=== PATIENT | male | born 1940 | race Caucasian/White ===

== ENCOUNTER 2017-11-28 05:38 | Inpatient (IN) | payer MEDICARE, BC ==
[~2017-11-28] VITALS: Ht 182.9 cm; Wt 74.8 kg
[~2017-11-28 05:38] MED LIST: ASPI325EC; ASPI81CH; ATOR40TA PO; ATOR80; CLON.2TP TOP; CLOP75 PO; GLYBURIDE METF PO; HYDRA25 PO; Hydrochloroth12.5 MG PO; LEVEMIR FL100 UNIT/1 SC; LISI20 PO; LOTREL; Levitra20 MG; Lotrel 10-40 M1 EACH PO; METF500 PO; METO25ER; METO50ER PO; MIRT30ST MM; Novolog Fl100 UNIT/1 INJ; PANT40 PO; PIOG15 PO; TADA10TA; TAMS.4ER PO
[2017-11-28] MEDS ORDERED: ASPI81CH PO (05:51)
[2017-11-28] MEDS ORDERED: FINA5 PO (05:54)
[2017-11-28] MEDS ORDERED: METF500 PO (05:55)
[2017-11-28] MEDS ORDERED: LEVE500 PO (05:55)
[2017-11-28] MEDS ORDERED: GLYB2.5 PO (05:55)
[2017-11-28 07:00] LABS: BASOPHILS ABSOLUTE AUTO 0.03 K/mm3 (0.00-0.23); BASOPHILS PERCENT AUTO 0 % (0-2); EOSINOPHILS ABSOLUTE AUTO 0.16 K/mm3 (0.00-0.68); EOSINOPHILS PERCENT AUTO 2 % (0-6); Hematocrit 33.3 % (37.0-53.0); Hemoglobin 11.9 g/dL (13.5-17.5); IMMATURE GRAN ABSOLUTE AUTO 0.02 K/mm3 (0.00-0.10); IMMATURE GRAN PERCENT AUTO 0 % (0-1); LYMPHOCYTES ABSOLUTE AUTO 1.49 K/mm3 (0.84-5.20); LYMPHOCYTES PERCENT AUTO 21 % (21-46); MONOCYTES PERCENT AUTO 6 % (4-13); Mean Corpuscular HGB 32.1 pg (26.0-34.0); Mean Corpuscular HGB Conc 35.7 g/dL (31.5-36.5); Mean Corpuscular Volume 90 fL (80-100); Mean Platelet Volume 9.7 fL (9.1-12.4); NEUTROPHILS ABSOLUTE AUTO 5.12 K/mm3 (1.96-9.15); NEUTROPHILS PERCENT AUTO 71 % (41-73); Platelet Count 158 K/mm3 (150-400); RDW Coefficient Variation 12.9 % (11.7-14.2); RDW Standard Deviation 41.6 fL (35.1-46.3); Red Blood Cell Count 3.71 M/mm3 (4.30-5.90); White Blood Cell Count 7.22 K/mm3 (4.00-11.30)
[2017-11-28 07:12] LABS: International Normalized Ratio 1.09; Prothrombin Time Results 11.4 Sec (9.7-11.5)
[2017-11-28 07:22] LABS: Alanine Aminotransfer (ALT/SGP 17 U/L (12-78); Albumin, Blood 3.3 g/dL (3.4-5.0); Albumin/Globulin Ratio 0.8 (0.8-1.8); Alk Phos 46 U/L (50-136); Anion Gap 7 mmol/L (6-16); Aspartate Aminotrans (AST/SGOT 13 U/L (12-37); Bilirubin, Total 0.6 mg/dL (0.1-1.0); Blood Urea Nitrogen 11 mg/dL (8-24); Bun/Creatinine Ratio 17.5 (12.0-20.0); CO2, Blood 26 mmol/L (21-32); Calcium, Blood 8.4 mg/dL (8.5-10.1); Chloride, Blood 107 mmol/L (98-108); Creatinine, Blood 0.63 mg/dL (0.60-1.20); Glomerular Filtration Rate >60 (60-); Glucose, Blood 121 mg/dL (70-99); Potassium, Blood 3.9 mmol/L (3.5-5.5); Sodium, Blood 140 mmol/L (136-145); Total Protein, Blood 7.3 g/dL (6.4-8.2)
[2017-11-29 06:33] LABS: BASOPHILS ABSOLUTE AUTO 0.01 K/mm3 (0.00-0.23); BASOPHILS PERCENT AUTO 0 % (0-2); EOSINOPHILS PERCENT AUTO 0 % (0-6); Hematocrit 28.8 % (37.0-53.0); Hemoglobin 10.1 g/dL (13.5-17.5); IMMATURE GRAN ABSOLUTE AUTO 0.07 K/mm3 (0.00-0.10); IMMATURE GRAN PERCENT AUTO 1 % (0-1); LYMPHOCYTES ABSOLUTE AUTO 0.89 K/mm3 (0.84-5.20); LYMPHOCYTES PERCENT AUTO 7 % (21-46); MONOCYTES ABSOLUTE AUTO 0.86 K/mm3 (0.16-1.47); MONOCYTES PERCENT AUTO 7 % (4-13); Mean Corpuscular HGB 31.8 pg (26.0-34.0); Mean Corpuscular HGB Conc 35.1 g/dL (31.5-36.5); Mean Corpuscular Volume 91 fL (80-100); Mean Platelet Volume 9.7 fL (9.1-12.4); NEUTROPHILS ABSOLUTE AUTO 10.66 K/mm3 (1.96-9.15); NEUTROPHILS PERCENT AUTO 85 % (41-73); Platelet Count 144 K/mm3 (150-400); RDW Coefficient Variation 12.8 % (11.7-14.2); RDW Standard Deviation 41.6 fL (35.1-46.3); Red Blood Cell Count 3.18 M/mm3 (4.30-5.90); White Blood Cell Count 12.49 K/mm3 (4.00-11.30)
[2017-11-29 06:54] LABS: Alanine Aminotransfer (ALT/SGP 14 U/L (12-78); Albumin, Blood 2.8 g/dL (3.4-5.0); Albumin/Globulin Ratio 0.8 (0.8-1.8); Alk Phos 46 U/L (50-136); Anion Gap 10 mmol/L (6-16); Aspartate Aminotrans (AST/SGOT 18 U/L (12-37); Bilirubin, Total 0.7 mg/dL (0.1-1.0); Blood Urea Nitrogen 16 mg/dL (8-24); CO2, Blood 23 mmol/L (21-32); Calcium, Blood 8.2 mg/dL (8.5-10.1); Chloride, Blood 103 mmol/L (98-108); Creatinine, Blood 0.73 mg/dL (0.60-1.20); Globulin, Blood 3.5 g/dL (2.2-4.0); Glomerular Filtration Rate >60 (60-); Glucose, Blood 351 mg/dL (70-99); Magnesium, Blood 1.6 mg/dL (1.6-2.4); Potassium, Blood 4.6 mmol/L (3.5-5.5); Sodium, Blood 136 mmol/L (136-145); Total Protein, Blood 6.3 g/dL (6.4-8.2)
[2017-11-30 08:27] LABS: BASOPHILS ABSOLUTE AUTO 0.01 K/mm3 (0.00-0.23); BASOPHILS PERCENT AUTO 0 % (0-2); EOSINOPHILS ABSOLUTE AUTO 0.09 K/mm3 (0.00-0.68); EOSINOPHILS PERCENT AUTO 1 % (0-6); Hematocrit 25.8 % (37.0-53.0); IMMATURE GRAN ABSOLUTE AUTO 0.04 K/mm3 (0.00-0.10); IMMATURE GRAN PERCENT AUTO 0 % (0-1); LYMPHOCYTES ABSOLUTE AUTO 1.86 K/mm3 (0.84-5.20); LYMPHOCYTES PERCENT AUTO 20 % (21-46); MONOCYTES ABSOLUTE AUTO 0.85 K/mm3 (0.16-1.47); MONOCYTES PERCENT AUTO 9 % (4-13); Mean Corpuscular HGB 31.8 pg (26.0-34.0); Mean Corpuscular HGB Conc 34.9 g/dL (31.5-36.5); Mean Corpuscular Volume 91 fL (80-100); Mean Platelet Volume 9.7 fL (9.1-12.4); NEUTROPHILS ABSOLUTE AUTO 6.49 K/mm3 (1.96-9.15); NEUTROPHILS PERCENT AUTO 70 % (41-73); Platelet Count 134 K/mm3 (150-400); RDW Coefficient Variation 12.8 % (11.7-14.2); RDW Standard Deviation 42.1 fL (35.1-46.3); Red Blood Cell Count 2.83 M/mm3 (4.30-5.90); White Blood Cell Count 9.34 K/mm3 (4.00-11.30)
[2017-11-30 08:55] LABS: Anion Gap 7 mmol/L (6-16); Blood Urea Nitrogen 20 mg/dL (8-24); Bun/Creatinine Ratio 26.9 (12.0-20.0); CO2, Blood 27 mmol/L (21-32); Calcium, Blood 8.2 mg/dL (8.5-10.1); Chloride, Blood 102 mmol/L (98-108); Creatinine, Blood 0.74 mg/dL (0.60-1.20); Glomerular Filtration Rate >60 (60-); Glucose, Blood 249 mg/dL (70-99); Potassium, Blood 4.1 mmol/L (3.5-5.5); Sodium, Blood 136 mmol/L (136-145)
== END 2017-12-01 11:55 | DRG 481 ==
LOC: ER 05:38 → SURS 06:59
PROVIDERS: Emergency Medicine; Internal Medicine; Orthopaedic Surgery
PROC: 0QSB04Z Reposition Right Lower Femur with Internal Fixation Device, Open Approach (ICD-10-PCS; principal; 2017-11-28 12:30)
DX: S72.451A Displaced supracondylar fracture without intracondylar extension of lower end of right femur, initial encounter for closed fracture (principal); M97.11XA Periprosthetic fracture around internal prosthetic right knee joint, initial encounter; E11.40 Type 2 diabetes mellitus with diabetic neuropathy, unspecified; E11.65 Type 2 diabetes mellitus with hyperglycemia; W18.30XA Fall on same level, unspecified, initial encounter; I25.10 Atherosclerotic heart disease of native coronary artery without angina pectoris; I25.2 Old myocardial infarction; I10 Essential (primary) hypertension; E78.5 Hyperlipidemia, unspecified; G40.909 Epilepsy, unspecified, not intractable, without status epilepticus; I99.9 Unspecified disorder of circulatory system; R33.9 Retention of urine, unspecified; D64.9 Anemia, unspecified; Y92.009 Unspecified place in unspecified non-institutional (private) residence as the place of occurrence of the external cause; Z79.82 Long term (current) use of aspirin; Z79.4 Long term (current) use of insulin; Z86.73 Personal history of transient ischemic attack (TIA), and cerebral infarction without residual deficits; Z79.899 Other long term (current) drug therapy
CPT/HCPCS: 36415; 73564; 80048; 80053; 82947; 83036; 83735; 85018; 85025; 85610; 86850; 86900; 86901; 93005; 93010; 94762; 96374; 96375; 96376; 97110; 97161; 97165; 97530; 99285; C1713; C1769; G8978; G8979; G8987; G8988; J0690; J1100; J1170; J1650; J1815; J2250; J2405; J2710; J3010; J3370; J3480; J7050; J7120

== ENCOUNTER 2018-12-04 19:31 | Inpatient (IN) | payer MEDICARE, BC ==
[~2018-12-04] VITALS: Ht 180.3 cm; Wt 78.9 kg
[~2018-12-04 19:31] MED LIST changes: +ASPI81CH PO; +FINA5 PO; +GLYB2.5 PO; +LEVE500 PO
[2018-12-04] MEDS ORDERED: ATOR20 PO (19:57)
[2018-12-04] MEDS ORDERED: GLYBURIDE METF PO (19:58)
[2018-12-04 20:23] LABS: BASOPHILS ABSOLUTE AUTO 0.03 K/mm3 (0.00-0.23); BASOPHILS PERCENT AUTO 0 % (0-2); EOSINOPHILS PERCENT AUTO 1 % (0-6); Hematocrit 42.9 % (37.0-53.0); Hemoglobin 15.1 g/dL (13.5-17.5); IMMATURE GRAN ABSOLUTE AUTO 0.04 K/mm3 (0.00-0.10); IMMATURE GRAN PERCENT AUTO 0 % (0-1); LYMPHOCYTES ABSOLUTE AUTO 1.84 K/mm3 (0.84-5.20); LYMPHOCYTES PERCENT AUTO 15 % (21-46); MONOCYTES ABSOLUTE AUTO 0.46 K/mm3 (0.16-1.47); MONOCYTES PERCENT AUTO 4 % (4-13); Mean Corpuscular HGB 32.3 pg (26.0-34.0); Mean Corpuscular HGB Conc 35.2 g/dL (31.5-36.5); Mean Corpuscular Volume 92 fL (80-100); Mean Platelet Volume 9.4 fL (9.1-12.4); NEUTROPHILS PERCENT AUTO 79 % (41-73); Platelet Count 227 K/mm3 (150-400); RDW Coefficient Variation 12.3 % (11.7-14.2); RDW Standard Deviation 41.1 fL (35.1-46.3); Red Blood Cell Count 4.68 M/mm3 (4.30-5.90); White Blood Cell Count 11.97 K/mm3 (4.00-11.30)
[2018-12-04 20:37] LABS: International Normalized Ratio 1.02; Prothrombin Time Results 10.8 Sec (9.7-11.5)
[2018-12-04 20:46] LABS: Alanine Aminotransfer (ALT/SGP 20 U/L (12-78); Albumin/Globulin Ratio 0.9 (0.8-1.8); Alk Phos 63 U/L (50-136); Anion Gap 8 mmol/L (6-16); Aspartate Aminotrans (AST/SGOT 20 U/L (12-37); Bilirubin, Total 0.6 mg/dL (0.1-1.0); Blood Urea Nitrogen 19 mg/dL (8-24); Bun/Creatinine Ratio 29.5 (12.0-20.0); CO2, Blood 26 mmol/L (21-32); Calcium, Blood 9.2 mg/dL (8.5-10.1); Chloride, Blood 99 mmol/L (98-108); Creatinine, Blood 0.64 mg/dL (0.60-1.20); Globulin, Blood 4.7 g/dL (2.2-4.0); Glomerular Filtration Rate >60 (60-); Glucose, Blood 301 mg/dL (70-99); Potassium, Blood 4.3 mmol/L (3.5-5.5); Sodium, Blood 133 mmol/L (136-145); Total Protein, Blood 8.7 g/dL (6.4-8.2)
[2018-12-04 21:04] LABS: Ethanol (Alcohol), Blood, Med <3 mg/dL
[2018-12-04 23:11] LABS: Source, Urine Clean Catch
[2018-12-04 23:12] LABS: Bilirubin, Urine Neg (Neg); Blood, Urine 2+ (Neg); Glucose Qualitative, Urine 4+ (Neg); Ketones, Urine 2+ (Neg); Leukocyte Esterase, Urine Neg (Neg); Nitrite, Urine Neg (Neg); Protein, Urine 2+ (Neg); Urobilinogen, Urine NORM (Normal)
[2018-12-04 23:25] LABS: Appearance, Urine Clear (Clear); Color, Urine Yellow (P-Yellow)
[2018-12-04 23:26] LABS: Bacteria Not Seen /hpf; Squamous Epithelial Cells Not Seen /hpf (Few); White Blood Cells, Urine Not Seen /hpf (0-5)
[2018-12-04 23:33] LABS: U Amphetamine Screen Not Detected; U Barbituate Screen Not Detected; U Benzodiazapine Screen Not Detected; U Buprenorphine Screen Not Detected; U Cannabinoids Screen Not Detected; U Cocaine Screen Not Detected; U Methadone Screen Not Detected; U Methamphetamine Screen Not Detected; U Opiates Screen Not Detected; U Oxycodone Screen Not Detected; U Phencyclidine Screen Not Detected; U Propoxyphene Screen Not Detected
--- NOTE | 2018-12-05 03:58 | NUR ---
SHIFT SUMMARY THE PT ADMITTED FOR HTN EMERGENCY AND AMS. ACCORDING TO REPORT THE PT RECIEVED A FULL CVA WORKUP WITH A CT SCAN AND A CTA SCAN WHICH WERE BOTH NEGATIVE OF STROKE. HOWEVER, THE PT EXHIBITS WHAT APPEARS TO BE WORD SALAD WITH SOME UNCONTROLLED MOVEMENTS OF HIS LIMBS AT TIMES AND A FACIAL DROOP PER WIFES REPORT WHICH HAS SUBSIDED. THE PT IS FULL CODE AND TELE IS NSR, FIRST DEGREE BLOCK AT A RATE OF 90 PER PIN DRAFTER OPERATOR. NS AT 100 MLS/HR STILL RUNNING FROM THE ED AND THEN 75 MLS/HR X1 BAG. NPO. CBG AT AC AND HS EXCEPT WHILE NPO AND THEN WILL BE Q 6 HRS. PT DOES HAVE AN MRI ORDERED BUT THE PTS LEFT SHORTLY AFTER THE PT WAS ADMITTED AND THE PT IS UNABLE TO ANSWER THE QUESTIONS APPROPRIATELY. THE STATED THAT SHE WENT TO WORK AND WHEN SHE RETURNED HOME AT AROUND 1700 THE PT WAS NOT MAKEING ANY SENSE. PTS STATED THAT THE PT PREVIOUSLY HAD A CVA AND WAS NOTHING LIKE THE WAY HE IS AT THIS TIME. THE ALSO STATED THAT THE PT HAD NOT TAKEN HIS KEPPRA FOR HX OF SEIZURES IN SEVERAL DAY, AND UNKNOWN NUMBER OF DAYS BECAUSE THE PT THOUGHT THAT THE MEDICATION WAS GONE. THE PT CURRENTLY APPEARS TO BE SLEEPING COMFORTABLY. NO APPARENT SIGNS OF ACUTE DISTRESS. IT IS UNCLEAR IF THE PT CAN MAKE NEEDS KNOWN. FREQUENT VISUAL CHECKS. CALL LIGHT IN REACH. BED ALARM FOR SAFETY. WILL CONTINUE TO MONITOR.
[2018-12-05 05:40] LABS: Hematocrit 40.1 % (37.0-53.0); Hemoglobin 14.5 g/dL (13.5-17.5); Mean Corpuscular HGB 33.1 pg (26.0-34.0); Mean Corpuscular HGB Conc 36.2 g/dL (31.5-36.5); Mean Corpuscular Volume 92 fL (80-100); Mean Platelet Volume 9.4 fL (9.1-12.4); Platelet Count 206 K/mm3 (150-400); RDW Coefficient Variation 12.1 % (11.7-14.2); RDW Standard Deviation 40.6 fL (35.1-46.3); Red Blood Cell Count 4.38 M/mm3 (4.30-5.90); White Blood Cell Count 11.76 K/mm3 (4.00-11.30)
[2018-12-05 06:05] LABS: Alanine Aminotransfer (ALT/SGP 16 U/L (12-78); Albumin, Blood 3.7 g/dL (3.4-5.0); Albumin/Globulin Ratio 0.9 (0.8-1.8); Alk Phos 55 U/L (50-136); Anion Gap 10 mmol/L (6-16); Aspartate Aminotrans (AST/SGOT 5 U/L (12-37); Bilirubin, Total 0.9 mg/dL (0.1-1.0); Blood Urea Nitrogen 15 mg/dL (8-24); Bun/Creatinine Ratio 24.8 (12.0-20.0); CO2, Blood 26 mmol/L (21-32); Calcium, Blood 8.6 mg/dL (8.5-10.1); Chloride, Blood 101 mmol/L (98-108); Creatinine, Blood 0.61 mg/dL (0.60-1.20); Globulin, Blood 4.2 g/dL (2.2-4.0); Glomerular Filtration Rate >60 (60-); Glucose, Blood 257 mg/dL (70-99); Potassium, Blood 3.4 mmol/L (3.5-5.5); Sodium, Blood 137 mmol/L (136-145); Total Protein, Blood 7.9 g/dL (6.4-8.2)
--- NOTE | 2018-12-05 07:57 | NUR ---
ECHOCARDIOGRAM COMPLETE
[2018-12-05 13:12] LABS: Source, Urine Catheter
[2018-12-05 13:17] LABS: Bilirubin, Urine Neg (Neg); Blood, Urine 2+ (Neg); Glucose Qualitative, Urine 4+ (Neg); Ketones, Urine 3+ (Neg); Leukocyte Esterase, Urine Neg (Neg); Nitrite, Urine Neg (Neg); Protein, Urine 2+ (Neg); Urobilinogen, Urine NORM (Normal)
[2018-12-05 13:33] LABS: Appearance, Urine Clear (Clear); Color, Urine Pale Yellow (P-Yellow)
[2018-12-05 13:36] LABS: Bacteria Not Seen /hpf; Red Blood Cells, Urine 0-2 /hpf (0-2); Squamous Epithelial Cells Rare /hpf (Few); White Blood Cells, Urine Rare /hpf (0-5)
--- NOTE | 2018-12-05 18:38 | NUR ---
PT. LYING QUIETLY, SPOUSE IN ROOM PT'S APPETITE IS NOT VERY GOOD ONLY TAKING BITES OF MEALS AND DRINKING HIS MILK. ALL IMAGING DONE TODAY DOES NOT SHOW SIGNS OF A CVA. PT. HAS BEEN RUNNING A TEMP TODAY FOR WHICH HE WAS GIVEN TYLENOL. DEE PLACED R/T PT. RETAINING URINE. PT. STILL HAVING TROUBLE WITH [employer].
--- NOTE | 2018-12-06 06:33 | NUR ---
SHIFT SUMMARY: NO ACUTE CHANGES SINCE SHIFT CHANGE. PT CONT TO BE ALERT TO SELF AND FAMILY ONLY. UNABLE TO FOLLOW COMMANDS. PT HAVING WORD SALAD.BP WNL @ 139/65, HAS NOT BEEN HYPERTENSIVE THIS SHIFT. DEE IN PLACE FOR RETENTION, PATENT & DRAINING. ASPIRATION PRECAUTIONS IN PLACE, MEDS CRUSHED IN APPLESAUCE. CBG 209 TONIGHT; ADMINISTERED HUMALOG PER SS AND 16 UNITS OF LANTUS. FAMILY AT BEDSIDE AT START OF SHIFT. NO OTHER CHANGES TO REPORT. WILL CONT TO MONITOR AND PROVIDE CARE UNTIL PRESUMED BY ONCOMING RN.
--- NOTE | 2018-12-06 16:11 | NUR ---
SHIFT SUMMARY THE PATIENT PRESENTED THE SHIFT WITH VITALS WNL, HR @ 66 PER TELE W/ 1ST DEGREE BLOCK, LUNGS WERE CLEAR. THE PATIENT'S DOCTOR ORDERED THE PATIENT'S DEE REMOVED, AND IT WAS AT 1130. THE PATIENT HAS NOT WANTED ANYTHING DONE FOR HIM THIS SHIFT, HIS SPOUSE HAS WANTED US TO FOLLOW UP WITH ALL TASKS NEEDED. THE PATIENT SPOUSE HAS BEEN HERE MOST OF THE SHIFT, WHILE THE PATIENT HAS BEEN SLEEPING. THE PATIENT HAS HAD SEVERAL VISITORS TODAY. IT WAS REPORTED THAT THE PATIENT MAY GO HOME THIS WEEKEND. THE PATIENT IS VISITING AT THIS TIME, WILL CONTINUE TO MONITOR.
--- NOTE | 2018-12-06 23:24 | NUR ---
BLADDER SCAN PRN BLADDER SCAN REVEALED RETENTION OF 433 ML. ENCOURAGED PT TO AMBULATE TO BATHROOM AND TRY TO VOID. PT 2 PER ASSIST TO BATHROOM AND ABLE TO VOID UNMEASURED LARGE VOID. WILL CONT TO MONITOR.
[2018-12-07 05:16] LABS: BASOPHILS ABSOLUTE AUTO 0.03 K/mm3 (0.00-0.23); BASOPHILS PERCENT AUTO 0 % (0-2); EOSINOPHILS PERCENT AUTO 2 % (0-6); Hemoglobin 12.5 g/dL (13.5-17.5); IMMATURE GRAN ABSOLUTE AUTO 0.02 K/mm3 (0.00-0.10); IMMATURE GRAN PERCENT AUTO 0 % (0-1); LYMPHOCYTES ABSOLUTE AUTO 2.47 K/mm3 (0.84-5.20); LYMPHOCYTES PERCENT AUTO 36 % (21-46); MONOCYTES ABSOLUTE AUTO 0.56 K/mm3 (0.16-1.47); MONOCYTES PERCENT AUTO 8 % (4-13); Mean Corpuscular HGB 32.7 pg (26.0-34.0); Mean Corpuscular HGB Conc 35.7 g/dL (31.5-36.5); Mean Corpuscular Volume 92 fL (80-100); Mean Platelet Volume 9.1 fL (9.1-12.4); NEUTROPHILS ABSOLUTE AUTO 3.64 K/mm3 (1.96-9.15); NEUTROPHILS PERCENT AUTO 53 % (41-73); Platelet Count 173 K/mm3 (150-400); RDW Coefficient Variation 12.1 % (11.7-14.2); RDW Standard Deviation 40.6 fL (35.1-46.3); Red Blood Cell Count 3.82 M/mm3 (4.30-5.90); White Blood Cell Count 6.82 K/mm3 (4.00-11.30)
[2018-12-07 05:38] LABS: Anion Gap 9 mmol/L (6-16); Blood Urea Nitrogen 23 mg/dL (8-24); Bun/Creatinine Ratio 32.8 (12.0-20.0); CO2, Blood 25 mmol/L (21-32); Calcium, Blood 8.6 mg/dL (8.5-10.1); Chloride, Blood 107 mmol/L (98-108); Glomerular Filtration Rate >60 (60-); Glucose, Blood 70 mg/dL (70-99); Potassium, Blood 3.4 mmol/L (3.5-5.5); Sodium, Blood 141 mmol/L (136-145)
--- NOTE | 2018-12-07 06:44 | NUR ---
SHIFT SUMMARY: PT IS MORE A&O TONIGHT, ABLE TO SPEAK IN SENTENCES c MINOR DYSPHAGIA. SLEEPS MOST OF SHIFT, ATTEMPTS TO EXIT BED 1X BUT IS REORIENTABLE. KEPPRA DOSE INCREASED TO 1000 MG TONIGHT. CBG @ 386, ADMINISTERED HUMALOG PER SS AND LANTUS 16 UNITS PER ORDERS. BLADDER SCAN SHOWS 433 ML, HOWEVER PT ABLE TO AMBULATE TO BR AND VOID SHORTLY AFTER. POST VOID RESDIUAL UNREMARKABLE. PT DENIES PAIN. RESISTIVE TO CARE AT TIMES BUT APOLOGIZES AND BECOMES COMPLIANT. WILL CONT TO MONITOR AND PROVIDE CARE UNTIL PRESUMED BY ONCOMING RN.
--- NOTE | 2018-12-07 14:59 | NUR ---
ASSUMED CARE FROM ANI URBINA. NO ACUTE CHANGES NOTED. NO CURRENT COMPLAINTS OF PAIN OR DISCOMFORT NOTED. WILL CONTINUE TO MONITOR FOR CHANGES.
--- NOTE | 2018-12-07 18:22 | NUR ---
NO ACUTE CHANGES NOTED. NO CURRENT COMPLAINTS OF PAIN OR DISCOMFORT NOTED. PATIENT APPEARS TO BE MORE ALERT AND ALMOST BACK TO BASELINE. WILL CONTINUE TO MONITOR FOR CHANGES.
--- NOTE | 2018-12-08 03:55 | NUR ---
PT REQUESTED SLEEPING PILL LAST NIGHT. WENT IN TO INFORM PT THAT HE DOES NOT HAVE "SLEEPING PILL" ORDERED, AND PT WAS ASLEEP. DID NOT WAKE PT TO INFORM HIM OF NO "SLEEPING PILL" ORDERED BECAUSE HE WAS ASLEEP. PT WAS ASLEEP FOR SEVERAL HOURS. UPON ATTEMPTING TO TAKE PT VITALS THIS AM, HE KICKED THIS RN AND THE ROAD ROLLER OPERATOR OUT OF THE . PT SAYS "YOU ARE ON PROBATION AND FIRED! I WANTED A SLEEPING PILL!" INFORMED PT HE WAS ASLEEP WHEN I WENT IN TO TELL HIM NO SLEEPING PILL AVAILABLE AND RN TO PLACE CALL TO HOSPITALIST c NEXT CALL OUT. PT REPSONDED WITH "GET OUT OF MY ROOM!"
--- NOTE | 2018-12-08 06:39 | NUR ---
SHIFT SUMMARY: NO ACUTE CHANGES TONIGHT. PT IS A&O X 4, BACK TO BASELINE "ALMOST" PER . PT IS ARGUMENTATIVE AND RESISTFUL TO CARE. CBG @ 359 TONIGHT; ADMINISTERED HUMALOG PER MED SS AND LANTUS 16 UNITS PER ORDERS. SEE PRIOR NOTE ABOUT "SLEEPING PILL" ALTERCATION. WILL CONT TO MONITOR AND PROVIDE CARE UNTIL PRESUMED BY ONCOMING RN.
--- NOTE | 2018-12-08 11:16 | NUR ---
DISCHARGE NOTE PT DISCHARGED TO HOME. PT EDUCATED ON HTN AND SEIZURES. EDUCATED ON HOME MEDS AND INSTRUCTED TO PICK MEDS UP FROM PHARMACY AND TO FOLLOW UP WITH PCP. PT ESCORTED OUT VIA WHEELCHAIR AND BUILDING SURVEYOR ESCORT AT 1115. IV DC'D BELONGINGS RETURNED
== END 2018-12-08 11:15 | disposition home or self-care (01) | DRG 101 ==
LOC: ER 19:31 → MEDS 19:32 → ER 19:32 → MEDS 19:32 → ENPENDDIS 12-08 09:59 → MEDS 12-08 11:15
PROVIDERS: Emergency Medicine; Internal Medicine; Physician Assistant; ADMIT Internal Medicine
DX: R56.9 Unspecified convulsions (principal); Z86.73 Personal history of transient ischemic attack (TIA), and cerebral infarction without residual deficits; I10 Essential (primary) hypertension; Z51.5 Encounter for palliative care; E87.6 Hypokalemia; I25.10 Atherosclerotic heart disease of native coronary artery without angina pectoris; E78.5 Hyperlipidemia, unspecified; N40.0 Benign prostatic hyperplasia without lower urinary tract symptoms; E11.65 Type 2 diabetes mellitus with hyperglycemia; E86.0 Dehydration; Z98.1 Arthrodesis status
CPT/HCPCS: 36415; 70450; 70496; 70498; 70551; 71045; 80048; 80053; 81001; 82947; 84132; 85025; 85027; 85610; 92523; 92610; 93005; 93010; 93306; 96374-59; 96375-59; 99285-25; G0480; J1650; J1953; J2405; J2550; J7030; Q9967

== ENCOUNTER 2022-09-27 07:47 | Emergency (ER) | payer BC ==
[~2022-09-27] VITALS: Ht 182.9 cm; Wt 79.4 kg
[~2022-09-27 07:47] MED LIST changes: +ATOR20 PO
[2022-09-27] MEDS ORDERED: Roxicodone5 MG PO (10:37)
== END 2022-09-27 11:15 | disposition home or self-care (01) ==
LOC: ER 07:47
DX: S82.61XA Displaced fracture of lateral malleolus of right fibula, initial encounter for closed fracture (principal); W18.39XA Other fall on same level, initial encounter; E11.9 Type 2 diabetes mellitus without complications; Z79.899 Other long term (current) drug therapy; Z79.4 Long term (current) use of insulin
CPT/HCPCS: 70450; 73610; A9270

== ENCOUNTER 2024-07-11 19:23 | Emergency (ER) | payer BC ==
[~2024-07-11] VITALS: Ht 182.9 cm; Wt 77.1 kg
[~2024-07-11 19:23] MED LIST changes: +Roxicodone5 MG PO
[2024-07-11 19:26] VITALS: BP 140/78
== END 2024-07-11 21:26 | disposition home or self-care (01) ==
LOC: ER 19:23
DX: M25.562 Pain in left knee (principal); E11.9 Type 2 diabetes mellitus without complications; E78.5 Hyperlipidemia, unspecified; I10 Essential (primary) hypertension; Z86.73 Personal history of transient ischemic attack (TIA), and cerebral infarction without residual deficits; Z79.82 Long term (current) use of aspirin; Z79.4 Long term (current) use of insulin; Z79.899 Other long term (current) drug therapy
CPT/HCPCS: 93971; 99283-25

== ENCOUNTER 2024-10-13 10:46 | Emergency (ER) | payer OTHER ==
[~2024-10-13] VITALS: Ht 182.9 cm; Wt 77.1 kg
[2024-10-13 11:03] VITALS: BP 144/64
== END 2024-10-13 11:54 | disposition home or self-care (01) ==
LOC: ER 10:46
DX: M25.561 Pain in right knee (principal); E78.5 Hyperlipidemia, unspecified; I10 Essential (primary) hypertension; E11.9 Type 2 diabetes mellitus without complications; Z86.73 Personal history of transient ischemic attack (TIA), and cerebral infarction without residual deficits; Z79.82 Long term (current) use of aspirin; Z79.899 Other long term (current) drug therapy
CPT/HCPCS: 73562-RT; 99283-25

== ENCOUNTER → 2025-01-13 | Outpatient (CLI) | payer OTHER | LOC: LAB SHORT 14:18 → LAB 14:18 | DX: E11.9 Type 2 diabetes mellitus without complications (principal); Z79.4 Long term (current) use of insulin | CPT/HCPCS: 83036 ==

== ENCOUNTER → 2025-04-09 | Outpatient (CLI) | payer OTHER ==
[2025-04-09 19:14] LABS: BASOPHILS ABSOLUTE AUTO 0.02 K/mm3 (0.00-0.23); BASOPHILS PERCENT AUTO 0 % (0-2); EOSINOPHILS ABSOLUTE AUTO 0.08 K/mm3 (0.00-0.68); EOSINOPHILS PERCENT AUTO 1 % (0-6); Hematocrit 37.5 % (37.0-53.0); Hemoglobin 13.2 g/dL (13.5-17.5); IMMATURE GRAN ABSOLUTE AUTO 0.01 K/mm3 (0.00-0.10); IMMATURE GRAN PERCENT AUTO 0 % (0-1); LYMPHOCYTES ABSOLUTE AUTO 1.44 K/mm3 (0.84-5.20); LYMPHOCYTES PERCENT AUTO 25 % (21-46); MONOCYTES ABSOLUTE AUTO 0.37 K/mm3 (0.16-1.47); MONOCYTES PERCENT AUTO 6 % (4-13); Mean Corpuscular HGB Conc 35.2 g/dL (31.5-36.5); Mean Corpuscular Volume 93 fL (80-100); NEUTROPHILS ABSOLUTE AUTO 3.90 K/mm3 (1.96-9.15); NEUTROPHILS PERCENT AUTO 67 % (41-73); NRBC ABSOLUTE 0.00 K/mm3 (0.00-0.02); NRBC Auto 0.0 /100 WBC (0.0-0.2); Platelet Count 149 K/mm3 (150-400); RDW Coefficient Variation 13.2 % (11.7-14.2); RDW Standard Deviation 45.6 fL (35.1-46.3)
[2025-04-09 20:37] LABS: Alanine Aminotransfer (ALT/SGP 19.0 U/L (12-78); Albumin, Blood 3.5 g/dL (3.4-5.0); Albumin/Globulin Ratio 0.8 (0.8-1.8); Anion Gap 9.0 mmol/L (3-11); Aspartate Aminotrans (AST/SGOT 14.0 U/L (12-37); Bilirubin, Total 0.6 mg/dL (0.1-1.0); Blood Urea Nitrogen 14.0 mg/dL (8-24); CO2, Blood 26.0 mmol/L (21-32); Calcium, Blood 8.6 mg/dL (8.5-10.1); Chloride, Blood 106.0 mmol/L (98-108); Creatinine, Blood 0.78 mg/dL (0.60-1.20); Globulin, Blood 4.2 g/dL (2.2-4.0); Glucose, Blood 295.0 mg/dL (70-99); Potassium, Blood 3.7 mmol/L (3.5-5.5); Sodium, Blood 137.0 mmol/L (136-145); Total Protein, Blood 7.7 g/dL (6.4-8.2)
== END ==
LOC: LAB SHORT 18:52 → LAB 18:52
PROVIDERS: Student in an Organized Health Care Education/Training Program
DX: R19.7 Diarrhea, unspecified (principal)
CPT/HCPCS: 80053; 85025

== ENCOUNTER → 2025-04-11 | Outpatient (CLI) | payer OTHER ==
[2025-04-13 15:57] LABS: Campylobacter Sp Not Detected (NOT DETECT); E. Coli O157 Not Detected (NOT DETECT); Enteroaggregative E. coli-EAEC Not Detected (NOT DETECT); Enteropathogenic E. coli-EPEC Not Detected (NOT DETECT); Enterotoxigenic E. coli-ETEC Not Detected (NOT DETECT); Salmonella Sp Not Detected (NOT DETECT); Shiga Toxin-prod E. coli-STEC Not Detected (NOT DETECT); Shigella/Enteroin E. coli-EIEC Not Detected (NOT DETECT); Vibrio Sp Not Detected (NOT DETECT)
== END ==
LOC: LAB SHORT 10:00 → LAB 10:00
PROVIDERS: Student in an Organized Health Care Education/Training Program
DX: R19.7 Diarrhea, unspecified (principal)
CPT/HCPCS: 87507